=== PATIENT | male | born 1995 | race Two or more races ===

== ENCOUNTER 2021-11-12 16:03 | Emergency (ER) | payer OTHER ==
[~2021-11-12] VITALS: Ht 190.5 cm; Wt 176.9 kg
[2021-11-12 18:59] LABS: Basophils # (auto) 0 10 ^3/uL (0-0.2); Basophils % (auto) 0.4 % (0.0-2.0); Eosinophils # (auto) 0.4 10 ^3/uL (0-0.8); Eosinophils % (auto) 3.5 % (0.0-7.0); Hematocrit 42.4 % (41.0-53.0); Hemoglobin 13.8 g/dL (13.5-17.5); Lymphocytes # (auto) 3.4 10 ^3/uL (0.4-5.4); Lymphocytes % (auto) 30.5 % (10.0-50.0); Mean Corpuscular Hemoglobin 27.7 pg (28.0-32.0); Mean Corpuscular Hgb Conc. 32.5 g/dL (32.0-36.0); Mean Corpuscular Volume 85.2 fL (80.0-100.0); Monocytes % (auto) 8.6 % (0.0-12.0); Neutrophils # (auto) 6.4 10 ^3/uL (1.6-8.6); Nucleated Red Blood Cells % 0.1 %; Red Blood Cells 4.98 10^6/uL (4.5-5.90); Red Cell Distribution Width 13.4 % (11.8-14.3); White Blood Cell 11.3 10^3/uL (4.4-10.8)
[2021-11-12 19:21] LABS: Albumin 3.5 g/dL (3.4-5.0); Calcium 9.7 mg/dL (8.5-10.1); Potassium 4.2 mmol/L (3.5-5.1)
[2021-11-12 19:23] LABS: BUN/Creatinine Ratio 12.4
[2021-11-12 19:28] LABS: Bilirubin, Total 0.5 mg/dL (0.2-1.0); Total Protein 7.6 g/dL (6.4-8.2)
[2021-11-12 20:45] VITALS: BP 151/72
== END 2021-11-12 21:41 | disposition home or self-care (01) ==
LOC: ER 16:03
DX: M62.838 Other muscle spasm (principal); R55 Syncope and collapse; R51.9 Headache, unspecified; E66.9 Obesity, unspecified; Z68.42 Body mass index [BMI] 45.0-49.9, adult; Z88.2 Allergy status to sulfonamides
CPT/HCPCS: 36415; 80053; 85025

== ENCOUNTER 2024-06-16 23:12 | Emergency (ER) | payer OTHER ==
[~2024-06-16] VITALS: Ht 190.5 cm; Wt 188.9 kg
[2024-06-16 23:44] VITALS: BP 151/103; PULSE 95; RESP 18; TEMP 98.1; O2SAT 98
[2024-06-17] MEDS: TETANUS-DIPTH-ACEL PERTUSSIS 0.5ML SYR Tdap IM ONE (02:37)
== END 2024-06-17 02:56 | disposition home or self-care (01) ==
LOC: ER 23:12
DX: S01.81XA Laceration without foreign body of other part of head, initial encounter (principal); Z88.2 Allergy status to sulfonamides; X58.XXXA Exposure to other specified factors, initial encounter; Y93.89 Activity, other specified; Y92.89 Other specified places as the place of occurrence of the external cause; Y99.8 Other external cause status
CPT/HCPCS: 12011; 90471; 90715